=== PATIENT | female | born 1985 | race Asian ===

== ENCOUNTER 2025-03-22 18:18 | Emergency (ER) | payer SELFPAY ==
[2025-03-22 18:20] VITALS: BP 120/67
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
[2025-03-22 20:17] VITALS: BMI 20.7
[2025-03-22] MEDS: MOTRIN PO (20:18)
[2025-03-22] MEDS: MOTRIN 400 MG PO (20:34)
[2025-03-22 22:22] VITALS: BP 120/65
== END 2025-03-22 22:23 | disposition home or self-care (01) ==
LOC: EMR 18:18
PROVIDERS: EMERGENCY PHYSICIAN Emergency Medicine
DX: S06.0X0A Concussion without loss of consciousness, initial encounter (principal); S16.1XXA Strain of muscle, fascia and tendon at neck level, initial encounter; V43.52XA Car driver injured in collision with other type car in traffic accident, initial encounter; Y92.410 Unspecified street and highway as the place of occurrence of the external cause
CPT/HCPCS: 99284; 70450; 72125